=== PATIENT | female | born 1990 | race African-American/Black ===

== ENCOUNTER 2019-09-20 12:52 | Emergency (ER) | payer OTHER ==
[~2019-09-20] VITALS: Ht 160 cm; Wt 56.7 kg
[2019-09-20] MEDS ORDERED: SODIUM CHLORIDE 0.9% 1,000 ML IVB ONE (13:22)
[2019-09-20] MEDS ORDERED: PROMETHAZINE HCL 25 MG/ML 1ML ONE (13:24)
[2019-09-20] MEDS ORDERED: PROMETHAZINE HCL 25 MG/ML 1ML IV PRN (13:30)
[2019-09-20] MEDS ORDERED: PROMETHAZINE HCL 25 MG/ML 1ML IV ONE (13:30)
[2019-09-20 14:04] LABS: Basophils # (auto) 0 uL; Basophils % (auto) 0.1 % (0.0-2.0); Eosinophils # (auto) 0 uL; Hematocrit 40.9 % (36.0-46.0); Hemoglobin 13.6 g/dL (12.2-16.2); Lymphocytes # (auto) 0.8 uL; Lymphocytes % (auto) 4.8 % (10.0-50.0); Mean Corpuscular Hemoglobin 27.7 pg (28.0-32.0); Mean Corpuscular Hgb Conc. 33.3 g/dL (32.0-36.0); Mean Corpuscular Volume 83.2 fL (80.0-100.0); Monocytes # (auto) 0.4 uL; Monocytes % (auto) 2.5 % (0.0-12.0); Neutrophils # (auto) 14.5 uL; Neutrophils % (auto) 92.6 % (37.0-80.0); Platelet Count (auto) 356 10^3/uL (140-450); Red Blood Cells 4.92 10^6/uL (4.0-5.20); Red Cell Distribution Width 14.5 % (11.8-14.3); White Blood Cell 15.6 10^3/uL (4.4-10.8)
[2019-09-20 14:11] LABS: Albumin 4.4 g/dL (3.4-5.0); BUN/Creatinine Ratio 17.4; Calcium 8.4 mg/dL (8.5-10.1)
[2019-09-20 14:17] LABS: Total Protein 8.5 g/dL (6.4-8.2)
[2019-09-20 14:19] LABS: Bilirubin, Total 0.6 mg/dL (0.2-1.0)
[2019-09-20 15:41] LABS: Amylase 31 U/L (25-115); Lipase 30 U/L (73-393)
[2019-09-20 16:00] VITALS: BP 118/64
[2019-09-20] MEDS ORDERED: cefTRIAXone 1GM/50ML D5W 50 ML IV ONE (16:15)
[2019-09-20] MEDS ORDERED: metroNIDAZOLE 500MG/100ML 100 ML IV ONE (16:15)
== END 2019-09-20 17:48 | disposition home or self-care (01) ==
LOC: EDBD 12:52 → ER 12:58
DX: K52.9 Noninfective gastroenteritis and colitis, unspecified (principal); R11.2 Nausea with vomiting, unspecified
CPT/HCPCS: 36415; 74176; 76705; 80053; 82150; 83690; 83735; 84702; 85025; 96361; 96365; 96368; 96375; 99284; J0696; J2550; J3490